=== PATIENT | female | born 1960 | race Caucasian/White ===

== ENCOUNTER 2020-02-17 22:41 | Emergency (ER) | payer MEDICARE ==
[~2020-02-17] VITALS: Ht 162.6 cm; Wt 72.6 kg
[~2020-02-17 22:41] MED LIST: ASPIRIN325 PO; COLACE100 MG PO; OXYCODONE HCL 55 MG PO; PRILOSEC 20 MG20 MG PO; PROPRANOLOL 1010 MG PO; TRIAMTERENE-HC1 EAC2 PO; XARELTO10 MG PO
[2020-02-17 23:06] LABS: ABSOLUTE BASOPHILS 0.1 thou/uL (0.0-0.2); ABSOLUTE EOSINOPHILS 0.2 thou/uL (0.0-0.7); ABSOLUTE LYMPHOCYTES 3.9 thou/uL (0.8-5.3); ABSOLUTE MONOCYTES 0.8 thou/uL (0.0-1.2); ABSOLUTE NEUTROPHILS 3.9 thou/uL (1.6-8.1); BASOPHILS 0.9 %; EOSINOPHILS 2.4 %; HEMATOCRIT 49.2 % (37.0-47.0); LYMPHOCYTES 43.9 %; MCH 32.8 pg (26.0-34.0); MCHC 34.5 g/dL (28.0-37.0); MCV 94.9 fL (80.0-100.0); MONOCYTES 8.9 %; MPV 7.9 fl. (7.2-11.1); NUCLEATED RBCS 0 /100WBC; PLATELET COUNT* 285 thou/uL (150-400); POLYS 43.9 %; RBC 5.19 mil/uL (4.20-5.00); RDW-CV 12.4 % (10.5-14.5); WBC 8.8 thou/uL (4.0-11.0)
[2020-02-17 23:29] LABS: ALBUMIN 3.6 g/dL (3.4-5.0); CALCIUM 9.3 mg/dL (8.5-10.1); CREATININE 0.7 mg/dL (0.6-1.3); POTASSIUM 3.4 mmol/L (3.5-5.1); TOTAL BILIRUBIN 0.2 mg/dL (<0.1-1.0); TOTAL PROTEIN 8.4 g/dL (6.4-8.2)
[2020-02-17 23:30] LABS: ACETAMINOPHEN < 2 ug/mL (10-30); ALCOHOL 292 mg/dL (<10); SALICYLATE 4.4 mg/dL (2.8-20.0)
[2020-02-17 23:30] LABS: URINE BILIRUBIN NEGATIVE (Negative); URINE BLOOD NEGATIVE (Negative); URINE CLARITY CLEAR; URINE COLOR YELLOW; URINE GLUCOSE-RANDOM 3+ (Negative); URINE KETONES NEGATIVE (Negative); URINE LEUKOCYTES-REFLEX TRACE (Negative); URINE NITRITE-REFLEX NEGATIVE (Negative); URINE PROTEIN NEGATIVE (Negative); URINE SPECIFIC GRAVITY <= 1.005 (1.005-1.030); URINE UROBILINOGEN 0.2 E.U./dl (0.2-1.0)
[2020-02-17 23:33] LABS: BACTERIA-REFLEX 1-9 Few /HPF (None Seen); CASTS None Seen /LPF (None Seen); CRYSTALS None Seen /LPF (None Seen); SQUAMOUS 0-3 Few /LPF (0-3); URINE RBC 0-2 Rare /HPF (0-2); URINE WBC-REFLEX 0-5 Rare /HPF (0-5)
[2020-02-17 23:35] LABS: AMP/METHAMP Negative (Negative); BARBITURATES Negative (Negative); BENZODIAZEPINES Negative (Negative); COCAINE Negative (Negative); METHADONE Negative (Negative); OPIATES Negative (Negative); PCP Negative (Negative); THC Negative (Negative)
[2020-02-19 14:36] VITALS: BP 149/83
--- NOTE | 2020-02-19 15:40 | EKG ---
[place] [address] ELECTROCARDIOGRAM REPORT Name: KENNY FERNANDEZ Room: [facility]#: [id number] Admission: 02/17/20 Attend Phys: Discharge: 02/19/20 Date of : 62 Date of Service: 02/17/202249 Report #: [id number] THIS REPORT FOR: //name// [facility] ED Test Date: 2020-02-17 Test Time: 22:50:35 Pat Name: KENNY FERNANDEZ Department: Room: Gender: F Recycle Driver: : [id number] Requested By: Jose Ramon Abreu Order Number: [id number] Reading MD: Bishnu Mustafa Measurements Intervals [place] Rate: 85 P: 69 NE: 163 QRS: 57 QRSD: 86 T: 62 QT: 385 QTc: 458 Interpretive Statements Sinus rhythm Left atrial enlargement Anteroseptal infarct, age indeterminate possible Compared to ECG 02/18/2017 09:16:42 Atrial abnormality now present ST (T wave) deviation now present possible anteroseptal scar Electronically Signed On 02-19-2020 15:38:08 CDT by Bishnu Mustafa [email or web address] <ELECTRONICALLY SIGNED> By: Bishnu Mustafa MD, [facility] 02/19/20 1538 2250 2250 Bishnu Mustafa MD, [facility] /EPI
== END 2020-02-19 14:40 ==
LOC: M.ERS 22:41
PROVIDERS: Emergency Medicine Emergency Medical Services
DX: Z03.818 Encounter for observation for suspected exposure to other biological agents ruled out (principal); T44.7X2A Poisoning by beta-adrenoreceptor antagonists, intentional self-harm, initial encounter; E78.5 Hyperlipidemia, unspecified; E11.9 Type 2 diabetes mellitus without complications; F32.9 Major depressive disorder, single episode, unspecified; Z79.82 Long term (current) use of aspirin; Z79.899 Other long term (current) drug therapy; Y92.89 Other specified places as the place of occurrence of the external cause